=== PATIENT | female | born 1985 | race Caucasian/White ===

== ENCOUNTER 2017-02-17 18:53 | Emergency (ER) | payer OTHER ==
[2017-02-17 19:22] VITALS: BP 130/80; PULSE 90; TEMP 97.8; BMI 18.1
[2017-02-17] MEDS ORDERED: LIDOCAINE 1%/EPI 1:100000 (50 ML MULTI DOSE VIAL) ONE (20:12)
--- NOTE | 2017-02-17 20:35 | PDOC ---
History of Present Illness - General Chief Complaint: Wound Stated Complaint: PCP SENT/CELLUITIS & ABSCESS Time Seen by Provider: 02/17/17 19:23 - History of Present Illness Initial Comments: 02/17/17 20:30 CHIEF COMPLAINT: abscess HISTORY OF PRESENT ILLNESS: 31 yo F with no PMH presents to fast track with abscess to left thigh x 5 days. Patient states she saw her PCP two days ago and was prescribed Bactrim but the abscess has increased in size and is more painful than before. She denies any fever, nausea, vomiting, or diarrhea. PAST MEDICAL HISTORY: Denies past medical history FAMILY HISTORY: Denies SOCIAL HISTORY: Denies tobacco, alcohol, illicit drug use. SURGICAL HISTORY: Denies ALLERGIES: No known drug allergies REVIEW OF SYSTEMS General/Constitutional: Denies fever or chills. Denies weakness, weight change. HEENT: Denies change in vision. Denies ear pain or discharge. Denies sore throat. Cardiovascular: Denies chest pain or shortness of breath. Respiratory: Denies cough, wheezing, or hemoptysis. Gastrointestinal: Denies nausea, vomiting, diarrhea or constipation. Denies rectal bleeding. Genitourinary: Denies dysuria, frequency, or change in urination. Musculoskeletal: Denies joint or muscle swelling or pain. Denies neck or back pain. Skin: Abscess to L thigh. PHYSICAL EXAM General Appearance: Well-appearing, appropriately dressed. No apparent distress , no intoxication. HEENT: EOMI, PERRLA. Respiratory/Chest: Lungs CTAB. Cardiovascular: RRR. S1, S2. Musculoskeletal/Extremities: Normal inspection. FROM of all extremities, normal capillary refill. Pelvis Stable. No CVA tenderness. No tenderness to extremities, pedal edema, swelling, erythema or deformity. Integumentary:2 cm x 2 cm tender, erythematous, fluctuant furuncle to left medial thigh with surrounding erythema. Appropriate color, dry, warm. 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 Fully oriented, alert. Appropriate mood/affect. Motor strength 5/5. No appreciable EOM palsy, facial droop or sensory deficit. 02/17/17 21:27 Past History - Past Medical History Allergies/Adverse Reactions: Allergies Allergy/AdvReac Type Severity Reaction Status Date / Time No Known Allergies Allergy Verified 02/17/17 19:16 Home Medications: Ambulatory Orders Clindamycin [Cleocin -] 300 mg PO Q6HPO #40 capsule 02/17/17 Cancer: Yes (Leukemia) - Psycho/Social/Smoking Cessation Hx Suicidal Ideation: No Smoking History: Never smoked Information on smoking cessation initiated: No Hx Alcohol Use: No Drug/Substance Use Hx: No Substance Use Type: None *Physical Exam - Vital Signs Last Vital Signs Temp Pulse Resp BP Pulse Ox 97.8 F 90 19 130/80 99 02/17/17 19:17 02/17/17 19:17 02/17/17 19:17 02/17/17 19:17 02/17/17 19:17 Procedures - Consent Consent obtained: Verbal - Incision and Drainage I&D Site: Left: Leg (medial thigh) Betadine cleansed: Yes Anesthesia: 1% Lidocaine w/ Epi Volume(ml): 5 Blade Size: 11 Attempts: 1 Iodinated Packin/2 in (~4cm) Complications: none Dressing: Yes (dry gauze) Medical Decision Making - Medical Decision Making 02/17/17 21:40 31 yo F with no PMH presents to fast track with abscess to left thigh x 5 days. -I&D performed (see proc note) -clindamycin rx sent to pharm Advised patient to return in 48 hours for wound recheck and to take medications as prescribed. Advised patient of signs and symptoms for return to ER; patient verbalized understanding and agrees to plan. *DC/Admit/Observation/Transfer Diagnosis at time of Disposition: Abscess - Discharge Dispostion Disposition: HOME Condition at time of disposition: Stable Admit: No - Prescriptions Prescriptions: Clindamycin [Cleocin -] 300 mg PO Q6HPO #40 capsule - Referrals Referrals: Peng Nicolas [Primary Care Provider] - - Patient Instructions Printed Discharge Instructions: DI for Incision and Drainage of a Skin Abscess Additional Instructions: As discussed, please return in 2 days for a wound check and/or packing removal. Please keep the area as clean and possible. If you experience increased pain , swelling, warmth, or redness to the area, or you develop fever, vomiting, or diarrhea, or any new or worsening symptoms, please return to the ER immediately.
== END 2017-02-17 21:00 | disposition home or self-care (01) ==
LOC: JERFT 18:53
PROC: 0H9JXZZ Drainage of Left Upper Leg Skin, External Approach (ICD-10-PCS; principal; 2017-02-17)
DX: L02.416 Cutaneous abscess of left lower limb (principal); Z85.6 Personal history of leukemia
CPT/HCPCS: 10060; 87070; 87205; 99281-25

== ENCOUNTER 2017-02-19 17:14 | Emergency (ER) | payer OTHER ==
[2017-02-19 17:18] VITALS: BP 109/68; PULSE 85; TEMP 98.5; BMI 25.0
--- NOTE | 2017-02-19 17:55 | PDOC ---
Suture Removal/Wound Check HPI - History of Present Illness Chief Complaint: Revisit,Wound Recheck Stated Complaint: FOLLW UP Time Seen by Provider: 02/19/17 17:28 History Source: Yes: Patient Treated at: [facility] Date of Last ED visit: 02/17/17 - Previous ED Treatment Type of procedure performed on last visit: Yes: I&D of Abscess Tetanus Immunization: Yes: Not given @ last ED visit Antibiotics Prescribed: Yes - Onset of Previous Treatment Comment:: 02/19/17 17:56 31 yo F with no PMH returns to fast track for wound check s/p I&D of abscess to L thigh 2 days ago. Patient states she still has pain to the abscess. Abscess is non fluctuant and has decreased in size since previous visit, but continues to be tender with mild surrounding erythema. Patient denies any fever, chills, nausea, vomiting, or diarrhea. Packing removed; patient states she does not want to have wound repacked. Advised patient to soak abscess 4 times daily. Area of erythema circumscribed; patient was advised to monitor abscess and area of erythema and to return if increases in size. Advised patient of other signs and symptoms for return to ER ; patient verbalized understanding and agrees to plan. Past History - Past Medical History Allergies/Adverse Reactions: Allergies No Known Allergies Allergy (Verified 02/21/17 17:12) Home Medications: Ambulatory Orders Clindamycin [Cleocin -] 300 mg PO Q6HPO #40 capsule 02/17/17 - Social History Smoking Status: Never smoked *DC/Admit/Observation/Transfer Diagnosis at time of Disposition: Wound check, abscess - Discharge Dispostion Disposition: HOME Condition at time of disposition: Stable Admit: No - Patient Instructions Printed Discharge Instructions: DI for Wound Infection Additional Instructions: As discussed, please continue taking your antibiotics as prescribed. Soak the abscess every day for at least 15 minutes a day, 4 times a day, to help continue draining the abscess. As discussed, if you notice any increased redness, swelling, or warmth to the site of the abscess past the area marked, please return to the ER. Also, if you experience any fever, chills, nausea, vomiting, or diarrhea, please return to the ER as well.
== END 2017-02-19 18:09 | disposition home or self-care (01) ==
LOC: JERFT 17:14
DX: L02.416 Cutaneous abscess of left lower limb (principal); Z48.01 Encounter for change or removal of surgical wound dressing
CPT/HCPCS: 99281-25

== ENCOUNTER 2017-02-21 16:53 | Emergency (ER) | payer OTHER ==
[2017-02-21 17:12] VITALS: BP 103/56; PULSE 98; TEMP 98.9; BMI 18.1
--- NOTE | 2017-02-21 18:15 | PDOC ---
History of Present Illness - General Chief Complaint: Wound Stated Complaint: FOLLOW UP Time Seen by Provider: 02/21/17 17:32 History Source: Patient Exam Limitations: No Limitations - History of Present Illness Initial Comments: 02/21/17 18:24 31-year-old female presents the ED for wound check. Patient states was seen in the and February 19 secondary to abscess she developed from ingrown hair to the left upper inner thigh. Patient states is still taking antibiotics and came for wound check. Patient denies fever, chills, worsening redness, drainage, or tenderness to the area. Patient has no past medical history including diabetes or immunosuppression. Timing/Duration: other Associated Symptoms: reports: denies symptoms Past History - Travel Traveled outside of the country in the last 30 days: No Close contact w/someone who was outside of country & ill: No - Past Medical History Allergies/Adverse Reactions: Allergies Allergy/AdvReac Type Severity Reaction Status Date / Time No Known Allergies Allergy Verified 02/21/17 17:12 Home Medications: Ambulatory Orders Clindamycin [Cleocin -] 300 mg PO Q6HPO #40 capsule 02/17/17 Cancer: Yes (Leukemia) - Psycho/Social/Smoking Cessation Hx Anxiety: No Suicidal Ideation: No Smoking History: Never smoked Have you smoked in the past 12 months: No Information on smoking cessation initiated: No Hx Alcohol Use: No Drug/Substance Use Hx: No Substance Use Type: None Patient Lives Alone: No Review of Systems - Review of Systems Able to Perform ROS?: Yes Constitutional: No: Symptoms Reported HEENTM: No: Symptoms Reported Respiratory: No: Symptoms reported Musculoskeletal: No: Symptoms Reported Integumentary: No: Symptoms Reported Neurological: No: Symptoms reported *Physical Exam - Vital Signs Last Vital Signs Temp Pulse Resp BP Pulse Ox 98.9 F 98 H 20 103/56 100 02/21/17 17:07 02/21/17 17:07 02/21/17 17:07 02/21/17 17:07 02/21/17 17:07 - Physical Exam General Appearance: Yes: Nourished, Appropriately Dressed. No: Apparent Distress Integumentary: positive: Other (Noted 1 cm healing pink epithelial wound to the inner aspect of upper left thigh. Surrounding skin pink no palpable fluctuance. No drainable express with moderate pressure. ) Neurologic: positive: Motor Strength 5/5 (ambulatory) Medical Decision Making - Medical Decision Making 02/21/17 18:30 Patient here for wound check. Patient has no complete presently. Area looks clean and intact.Area was cleansed with normal saline and redressed with Tefla. Patient given dressings to change in 72 hours and apply Band-Aid. Patient also given instructions return to ED if symptoms worsen. *DC/Admit/Observation/Transfer Diagnosis at time of Disposition: Wound check, abscess - Discharge Dispostion Disposition: HOME Condition at time of disposition: Good - Referrals Referrals: Priscilla Nicolas MD [Primary Care Provider] - - Patient Instructions Printed Discharge Instructions: DI for Wound Infection Additional Instructions: Please continue to watch area for redness swelling and drainage. Please change bandage in 72 hours then he movements 72 hours applying just a Band-Aid.
== END 2017-02-21 18:24 | disposition home or self-care (01) ==
LOC: JERFT 16:53
DX: Z09 Encounter for follow-up examination after completed treatment for conditions other than malignant neoplasm (principal)
CPT/HCPCS: 99281-25

== ENCOUNTER 2018-12-21 08:41 | Day surgery (SDC) | payer OTHER | END 2018-12-21 12:10 | disposition home or self-care (01) | LOC: JASU-SURG 08:41 ==